=== PATIENT | female | born 1940 ===

== ENCOUNTER 2022-11-18 06:10 | Day surgery (SDC) | payer OTHER ==
[~2022-11-18 06:10] MED LIST: COREG CR20 MG PO; COZAAR100 MG PO; LASIX20 MG PO; PLAVIX75 MG PO; SYNTHROID50 MCG PO; TRANXENE T-TAB7.5 MG PO; ZOLOFT50 MG PO
[2022-11-18] MEDS ORDERED: MACROBID 100 M100 MG PO (11:05)
[2022-11-18] MEDS ORDERED: TRAM1TAB98 PO (11:06)
== END 2022-11-18 14:20 | disposition home or self-care (01) ==
LOC: CIR.AMB 06:10
PROVIDERS: ATTEND Obstetrics & Gynecology Gynecology
DX: N81.11 Cystocele, midline (principal); N81.6 Rectocele; N81.5 Vaginal enterocele; Z20.822 Contact with and (suspected) exposure to COVID-19